=== PATIENT | female | born 1945 | race Caucasian/White ===

== ENCOUNTER 2018-08-18 10:19 | Day surgery (SDC) | payer MEDICARE, BC ==
[~2018-08-18] VITALS: Ht 171.4 cm; Wt 70.2 kg
[~2018-08-18 10:19] MED LIST: ALBU18HF INH; CALC-451 PO; DEXL60CA2 PO; DICL100G19 TP; FLUT1AER INH; HYDR-3237 PO; LEVO75TA5 PO; LIDO700A42 TP; LOSA50TA14 PO; MOME17SP NAS; MONT10TA9 PO; NAPR220C2 PO; ROPI1TAB2 PO; SIMV40TA3 PO
[2018-08-18 10:44] VITALS: BP 136/80
[2018-08-18] MEDS ORDERED: LACTATED RINGERS 1,000 ML IV SCH (10:47)
[2018-08-18] MEDS ORDERED: ACETAMINOPHEN 500 MG TABLET PO ONE (11:00)
[2018-08-18] MEDS ORDERED: ONDANSETRON ODT 8 MG PO ONE (11:00)
[2018-08-18] MEDS ORDERED: MIDAZOLAM 1 MG/ML, 2ML ONE (13:16)
[2018-08-18] MEDS ORDERED: FENTANYL PF 100 MCG/2ML ONE (13:16)
[2018-08-18] MEDS ORDERED: SUCCINYLCHOLINE 20 MG/ML, 10ML ONE (13:59)
[2018-08-18] MEDS ORDERED: BUPIVACAINE/PF-EPI 0.5% 1:200K INFIL ONE (14:18)
[2018-08-18] MEDS ORDERED: OXYcodone 5 MG/5 ML ORAL.SOL UDC PO PRN (14:30)
[2018-08-18] MEDS ORDERED: hydrALAzine 20 MG/ML, 1ML IV PRN (14:30)
[2018-08-18] MEDS ORDERED: FENTANYL PF 100 MCG/2ML IV PRN (14:30)
[2018-08-18] MEDS ORDERED: ONDANSETRON 2MG/ML, 2ML IV PRN (14:30)
[2018-08-18] MEDS ORDERED: HYDROmorphone 2 MG/ML, 1ML IVPush PRN (14:30)
[2018-08-18] MEDS ORDERED: MIDAZOLAM 1 MG/ML, 2ML IV PRN (14:30)
[2018-08-18] MEDS ORDERED: ALBUTEROL/IPRATROPIUM 2.5MG/0.5MG, 3 ML NPPB PRN (14:30)
[2018-08-18] MEDS ORDERED: PROMETHAZINE 25 MG/ML, 1ML IV PRN (14:30)
[2018-08-18] MEDS ORDERED: CEFAZOLIN 1,000 MG ONE (15:14)
[2018-08-18] MEDS ORDERED: PROPOFOL 10 MG/ML, 20ML ONE (15:14)
[2018-08-18] MEDS ORDERED: DEXAMETHASONE 4 MG/ML, 1ML ONE (15:14)
[2018-08-18] MEDS ORDERED: LIDOCAINE-MPF 2% ,5ML ONE (15:14)
[2018-08-18] MEDS ORDERED: BUPIVACAINE/PF 0.25% ONE (15:14)
== END 2018-08-18 17:10 | disposition home or self-care (01) ==
LOC: OUT 10:19
PROVIDERS: ATTEND Podiatrist Foot & Ankle Surgery
DX: M19.071 Primary osteoarthritis, right ankle and foot (principal); M25.371 Other instability, right ankle; M77.31 Calcaneal spur, right foot; J44.9 Chronic obstructive pulmonary disease, unspecified; E78.5 Hyperlipidemia, unspecified; I10 Essential (primary) hypertension; G47.33 Obstructive sleep apnea (adult) (pediatric); Z88.8 Allergy status to other drugs, medicaments and biological substances; Z88.1 Allergy status to other antibiotic agents
CPT/HCPCS: 27696; 28119; 29892; 64445; 64447; 73600; 76000; C1713; C1776; J0330; J0690; J1100; J2250; J2704; J3010; J3490; J7120; Q0162